=== PATIENT | male | born 1995 ===

== ENCOUNTER 2018-10-25 14:37 | Emergency (ER) | payer OTHER ==
--- NOTE | 2018-10-25 15:05 | Emergency Department Report ---
Blank Doc - Documentation Documentation: This is a 23-year-old male that presents with acute on chronic intermittent lo wer back pain x2 years. Denies any injuries or urinary symptoms. This initial assessment/diagnostic orders/clinical plan/treatment(s) is/are subject to change based on patient's health status, clinical progression and re- assessment by fellow clinical providers in the ED. Further treatment and workup at subsequent clinical providers discretion. Patient/guardians urged not to elope from the ED as their condition may be serious if not clinically assessed and managed. Initial orders include: 1- Patient sent to [facility] for further evaluation and treatment
--- NOTE | 2018-10-25 17:07 | Emergency Department Report ---
ED Back Pain/Injury HPI - General Chief Complaint: Back Pain/Injury Stated Complaint: LOWER BACK PAIN Time Seen by Provider: 10/25/18 15:04 Source: patient Limitations: No Limitations - History of Present Illness MD Complaint: back pain -: week(s) (1) Similar Symptoms Previously: Yes (some back issues ongoing for the past 2 [address] ) [address]: work (works in construction) Radiation: none Severity: moderate Severity scale (0 -10): 6 Consistency: constant Worsens With: medication Associated Symptoms: denies: confusion, weakness, chest pain, numbness, difficu lty walking, cough, difficulty urinating, diaphoresis, fever/chills, constipation, headaches, abdominal pain, loss of appetite, nausea/vomiting, rash, seizure, shortness of breath, syncope - Related Data Previous Rx's Medication Instructions Recorded Last Taken Type Ibuprofen [Ibu] 800 mg PO Q8H PRN #20 tablet 10/25/18 Unknown Rx methOCARBAMOL [Robaxin TAB] 500 mg PO Q6H PRN #14 tablet 10/25/18 Unknown Rx Allergies Allergy/AdvReac Type Severity Reaction Status Date / Time Penicillins Allergy Unknown Verified 10/25/18 14:39 ED Review of Systems ROS: Stated complaint: LOWER BACK PAIN Other details as noted in HPI Comment: All other systems reviewed and negative ED Back Pain Physical Exam - Exam General: Vital signs noted. No distress. Alert and acting appropriately. Back/Abdomen: Yes Perilumbar Tenderness, No Abdominal Tenderness, No Perithoracic Tenderness, No Sacroiliac Tenderness, No Flank Tenderness, No Straight Leg Raise Pain Neuro: Yes Normal Sensation, Yes Normal DTR's, Yes Normal Gait, No Motor Weakness ED Course Vital Signs 10/25/18 15:05 Temperature 98.5 F Pulse Rate 85 Respiratory 18 Rate Blood Pressure 154/91 O2 Sat by Pulse 95 Oximetry ED Medical Decision Making - Medical Decision Making Patient will be treated for muscular skeletal back pain and given referral to orthopedics for possible MRI Critical care attestation.: If time is entered above; I have spent that time in minutes in the direct care of this critically ill patient, excluding procedure time. ED Disposition Clinical Impression: Lumbar strain Qualifiers: Encounter type: initial encounter Qualified Code(s): S39.012A - Strain of muscle, fascia and tendon of lower back, initial encounter Disposition: TO HOME OR SELFCARE Is pt being admited?: No Does the pt Need Aspirin: No Condition: Stable Instructions: Muscle Strain (ED), Low Back Strain (ED) Referrals: ROMAIN CARPENTER MD [Staff Physician] - 3-5 Days Time of Disposition: 17:07
[2018-10-25 17:35] VITALS: BP 146/84
== END 2018-10-25 17:29 | disposition home or self-care (01) ==
LOC: ED 14:37
DX: S39.012A Strain of muscle, fascia and tendon of lower back, initial encounter (principal); X58.XXXA Exposure to other specified factors, initial encounter; Y93.89 Activity, other specified; Y92.69 Other specified industrial and construction area as the place of occurrence of the external cause; Y99.0 Civilian activity done for income or pay
CPT/HCPCS: 99282